=== PATIENT | female | born 1995 | race Caucasian/White ===

== ENCOUNTER → 2019-01-02 | Outpatient (REF) | payer OTHER ==
[2019-01-02 19:34] LABS: HEMATOCRIT 37.3 % (36.0-47.0); HEMOGLOBIN 12.1 g/dl (12.0-15.5); MEAN CORPUSCULAR HEMOGLOBIN 28.1 pg (27.0-33.0); MEAN CORPUSCULAR HGB CONC 32.4 g/dl (32.0-36.5); MEAN CORPUSCULAR VOLUME 86.5 fl (80.0-96.0); PLATELET COUNT, AUTOMATED 272 10^3/uL (150-450); RED BLOOD COUNT 4.31 10^6/uL (4.00-5.40); WHITE BLOOD COUNT 7.8 10^3/uL (4.0-10.0)
[2019-01-02 20:02] LABS: ALBUMIN 4.2 GM/DL (3.2-5.2); ALT/SGPT 57 U/L (12-78); BILIRUBIN,TOTAL 0.5 MG/DL (0.2-1.0); BLOOD UREA NITROGEN 13 MG/DL (7-18); CALCIUM LEVEL 9.2 MG/DL (8.5-10.1); CARBON DIOXIDE LEVEL 27 MEQ/L (21-32); CHLORIDE LEVEL 107 MEQ/L (98-107); CREATININE FOR GFR 0.76 MG/DL (0.55-1.30); FREE T4 1.13 NG/DL (0.76-1.46); GLOMERULAR FILTRATION RATE > 60.0 (>60); GLUCOSE, FASTING 87 MG/DL (70-100); POTASSIUM SERUM 4.5 MEQ/L (3.5-5.1); SODIUM LEVEL 141 MEQ/L (136-145); TOTAL PROTEIN 7.2 GM/DL (6.4-8.2)
== END ==
LOC: M SFHCADAM 15:04
PROVIDERS: ATTEND Physician Assistant
DX: E03.9 Hypothyroidism, unspecified (principal); N92.6 Irregular menstruation, unspecified; K14.8 Other diseases of tongue
CPT/HCPCS: 80053; 84439; 84443; 85027; G0463

== ENCOUNTER → 2019-01-30 | Outpatient (CLI) | payer OTHER ==
[~2019-01-30] MED LIST: ISOVUE-370 76% 100ML VIAL (Q9967) As Ordered ONE
--- NOTE | 2019-01-30 15:26 | REP ---
CT neck: 01/30/2019. Indication: Neck pain. Comparison: None. Technique: Axial images of the neck soft tissues were obtained following IV administration of 75 ml Isovue 370. Sagittal and coronal reconstructions were provided. Findings: Small low attenuating foci within the thyroid gland are noted within the isthmus and left lobe most likely representing benign cysts. No abnormal solid soft tissue masses or cervical lymphadenopathy are present. No ocular, intraorbital or intracranial abnormalities are detected. The paranasal sinuses and mastoid air cells are essentially clear. The pharyngeal, palatine and lingular tonsils are without focal abnormality. The submandibular and parotid glands are also without focal abnormality. No significant vascular abnormalities are detected. The visualized lungs are clear. Impression: No abnormal solid soft tissue mass, fluid collections or cervical lymphadenopathy. Small benign appearing thyroid nodules. Electronically Signed by Eldon Taveras DO 01/30/2019 03:18 P
== END ==
LOC: M RAD 14:22
PROVIDERS: ATTEND Otolaryngology
DX: J35.8 Other chronic diseases of tonsils and adenoids (principal); E04.1 Nontoxic single thyroid nodule
CPT/HCPCS: 70491; Q9967

== ENCOUNTER → 2020-08-26 | Outpatient (CLI) | payer BC ==
[~2020-08-26] MED LIST changes: +GASTROGRAFIN SOLUTION 30ML (Q9963) As Ordered ONE; -ISOVUE-370 76% 100ML VIAL (Q9967) As Ordered ONE; +ISOVUE-370 76% 100ML VIAL As Ordered ONE; +LAMO200T54 PO; +SYNT75TA PO
--- NOTE | 2020-08-27 08:08 | REP ---
INDICATION: LYMPHOMA. COMPARISON: Comparison thyroid sonography November 23, 2005.. Comparison CT study January 30, 2019. TECHNIQUE: Helical scanning is acquired following the intravenous injection of 100 mL of Isovue 370. 3 mm axial images re-formatted. Coronal and sagittal MPR images are provided. FINDINGS: There is mild mucosal thickening in the inferior aspect of each maxillary sinus. Other otherwise, the paranasal sinuses appear clear. Nodular enlargement of the thyroid gland is again noted unchanged. No vascular abnormality is seen. The lung apices are clear. No bony destructive lesion is seen. No intraorbital mass is seen. Tonsillar and peritonsillar soft tissues are unremarkable. Parotid and submandibular glands are normal and symmetric. There is no evidence of suprahyoid or infrahyoid adenopathy or mass lesion. IMPRESSION: Nodular enlargement of the thyroid again noted unchanged. No neck mass or adenopathy seen. <Electronically signed by Julio Matthews > 08/27/20 [id number]
--- NOTE | 2020-08-27 08:21 | REP ---
INDICATION: LYMPHOMA. COMPARISON: None TECHNIQUE: Axial contrast-enhanced images from the lung bases to the pubic symphysis using oral and 100 cc Isovue 370 intravenous contrast material. Delayed images of the abdomen along with coronal and sagittal reformations obtained. This CT examination was performed using the following dose reduction techniques: Automated exposure control, adjustment of mA and/or kv according to the patient's size, and the use of iterative reconstruction technique. FINDINGS: Liver, spleen, pancreas, gallbladder, bilateral adrenal glands and kidneys are normal. The enteric system including stomach, small, and large bowel appears normal. No evidence for obstruction or acute inflammatory process. Normal terminal ileum and appendix are identified in the right lower quadrant. Pelvis demonstrates normal bladder and age-appropriate uterus/adnexa. No ascites. No free air. No intraperitoneal or retroperitoneal adenopathy. Abdominal aorta and vasculature appear normal. Musculoskeletal structures are intact and without acute osseous abnormality. IMPRESSION: No acute abdominopelvic pathology appreciated. No adenopathy. <Electronically signed by Fuentes Adams > 08/27/20 [id number]
--- NOTE | 2020-08-27 08:24 | REP ---
INDICATION: LYMPHOMA COMPARISON: None TECHNIQUE: Axial contrast enhanced images from the thoracic inlet to the upper abdomen with coronal and sagittal reformations using 75 ml Isovue 370 intravenous contrast material. This CT examination was performed using the following dose reduction techniques: Automated exposure control, adjustment of mA and/or kv according to the patient's size, and use of iterative reconstruction technique. FINDINGS: Lung guerra are relatively symmetric and essentially well aerated/clear. No consolidation, significant nodule or mass lesion. There is a 3 mm nodule in the right upper lobe (image 23). No effusion. No pneumothorax. Tracheobronchial tree is patent. Mediastinum demonstrates normal thoracic aorta, pulmonary vasculature, and heart/pericardium. No significant adenopathy identified. Musculoskeletal structures are intact and without acute osseous abnormality. IMPRESSION: No acute mediastinal or pleuroparenchymal process appreciated. No adenopathy. 3 mm nonspecific nodule in the right upper lobe is likely incidental. <Electronically signed by Fuentes Adams > 08/27/20 [id number]
== END ==
LOC: M RAD 15:29
PROVIDERS: ATTEND Specialist
DX: C81.90 Hodgkin lymphoma, unspecified, unspecified site (principal)